=== PATIENT | male | born 1965 | race Caucasian/White ===

== ENCOUNTER 2019-12-14 12:30 | Emergency (ER) | payer BC ==
[~2019-12-14] VITALS: Ht 175.3 cm; Wt 96.3 kg
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
[2019-12-14] MEDS ORDERED: ASPIRIN 81 MG CHEW TAB ONE (12:57)
[2019-12-14] MEDS ORDERED: ASPIRIN 325 MG TAB PO ONE (13:00)
[2019-12-14] MEDS ORDERED: IOPAMIDOL 370 MG/ML 200 ML INFUS..BTL INJ ONE (13:31)
[2019-12-14] MEDS ORDERED: SODIUM CHLORIDE 0.9% 250ML 250 ML ONE (13:32)
[2019-12-14] MEDS ORDERED: SODIUM CHLORIDE 0.9% 1000ML 1,000 ML ONE (13:32)
--- NOTE | 2019-12-14 13:42 | Diagnostic Imaging Report ---
EXAMINATION: PA and lateral views of the chest. COMPARISON: None CLINICAL HISTORY: Left-sided chest pain DISCUSSION: The lungs are well inflated. No focal airspace consolidation, pleural effusion, or pneumothorax. Cardiomediastinal contour and pulmonary vasculature are within normal limits. No acute osseous abnormalities. IMPRESSION: No acute cardiopulmonary abnormalities. Signed by: Dr. Sly Galvez M.D. on 12/14/2019 1:39 PM
[2019-12-14] MEDS ORDERED: SODIUM CHLORIDE 0.9% 1000ML 1,000 ML IV SCH (13:45)
[2019-12-14] MEDS ORDERED: LOSARTAN POTASS25 MG (14:09)
[2019-12-14] MEDS ORDERED: NEXIUM40 MG PO (14:09)
[2019-12-14] MEDS ORDERED: HYDROCHLOROTHIA25 MG (14:09)
--- OUTSIDE RECORDS SUMMARY | 2019-12-14 14:11 | XMS REPORT | Continuity of Care Document ---
Author Author [facility] t Organization [facility] Address [address] [place] [address] Phone Unavailable Care Team Providers Care Mussel Farmer Name Role Phone Eladio SHABAZZ Unavailable Payers Payer Name Policy Type Policy Number Effective Date Expiration Date S ource Problems This patient has no known problems. Allergies, Adverse Reactions, Alerts Allergy Name Allergy Type Status Severity Reaction(s) Onset Date Inacti ve Date Treating Clinician Comments Source No Known Allergies DA Active U 2012-01-20 00:00:[address] [facility] Medications This patient has no known medications. Procedures This patient has no known procedures. Results Test Description Test Time Test Comments Results Result Comments Source CXR 2 VIEW - HOPD 2019-12-14 13:37:00 [facility] [address] [place] [address] Patient Name: TRISTON BLAKE MR #: [id number] : 1965 Age/Sex: 54/M Req #: [id number] Adm Physician: Ordered by: VICTOR HUGO SHABAZZ MD Report #: [id number] Location: [facility] Room/Bed: Procedure: [id number] HOPD/CXR 2 VIEW - HOPD Exam Date: 12/14/19 Exam Time: 1327 REPORT STATUS: Signed EXAMINATION: PA and lateral views of the chest. COMPARISON: None CLINICAL HISTORY: Left-sided chest pain DISCUSSION: The lungs are well inflated. No focal airspace consolidation, pleural effusion, or pneumothorax. Cardiomediastinal contour and pulmonary vasculature are within normal limits. No acute osseous abnormalities. IMPRESSION: No acute cardiopulmonary abnormalities. Signed by: Dr. Jewels Johnson M.D. on 12/14/2019 1:39 PM Dictated By: JEWELS JOHNSON MD 1336 Transcribed By: RONY on 12/14/19 1339 COPY TO: VICTOR HUGO SHABAZZ MD
--- NOTE | 2019-12-14 14:56 | Diagnostic Imaging Report ---
Chest CTA WITHOUT AND WITH IV CONTRAST. INDICATION: Right-sided acute onset chest pain. COMPARISON: None. TECHNIQUE: The chest was scanned utilizing a multidetector helical scanner from the thoracic inlet to the upper abdomen before and after administration of IV contrast. Coronal and sagittal reformations were obtained. 3D post-processing of the images was performed, and the post-processed images were used in interpretation. CTA protocol was performed. IV CONTRAST: 86 mL of Isovue 370 ORAL CONTRAST: None RADIATION DOSE: Total DLP: 666 mGy*cm FINDINGS: VESSELS: Noncontrast images are negative for acute intramural hematoma. Postcontrast images are negative for aortic dissection or aneurysm. Negative for penetrating atherosclerosis ulceration. No adverse chronic calcifications are identified. Normal three-vessel branching pattern is noted. Pulmonary arteries are normal caliber. Negative for central embolism. NON-VASCULAR: LINES/ TUBES: None. LUNGS AND AIRWAYS: Negative for consolidation. No suspicious nodule or mass is identified. Airways are normal. PLEURA: The pleural spaces are clear. HEART AND MEDIASTINUM: The thyroid gland is normal. No mediastinal, hilar or axillary lymphadenopathy. The heart is normal in size.. There is no pericardial effusion. Negative for right ventricular enlargement. UPPER ABDOMEN: Cholesterol stones are identified within the partially visualized gallbladder which is not distended. BONES: No acute osseous abnormality. No suspicious lytic or blastic lesion. SOFT TISSUES: Unremarkable. IMPRESSION: 1. Negative for aortic dissection, aneurysm or intramural hematoma. No calcified atherosclerotic changes are identified. 2. Lungs are clear. Signed by: Truong Godinez MD on 12/14/2019 2:52 PM
[2019-12-14 17:10] VITALS: BP 130/69
== END 2019-12-14 16:41 | disposition home or self-care (01) ==
LOC: FSED 12:45
DX: R07.9 Chest pain, unspecified (principal); I10 Essential (primary) hypertension; E78.5 Hyperlipidemia, unspecified; K21.9 Gastro-esophageal reflux disease without esophagitis; M48.04 Spinal stenosis, thoracic region
CPT/HCPCS: 71046; 71275; 80053; 81003; 82553; 83880; 84484; 85025; 85379; 93005; 99284; J7050; Q9967; J7030

== ENCOUNTER → 2023-02-16 | Day surgery (SDC) | payer BC ==
[~2023-02-16] MED LIST: ACETAMINOPHEN-1 EAC4 PO; BUPIVACAINE HCL 0.5% 10ML MPF VIAL INJ ONE; CRESTOR10 MG PO; CYCLOBENZAPRINE10 MG PO; FENTANYL CITRATE/PF 100MCG/2 ML INJ ONE; HYDROCHLOROTHIA25 MG; LACTATED RINGER'S 1,000 ML ONE; LIDOCAINE HCL 2% LOCAL INJ 5 ML SDV VIAL INJ ONE; LOSARTAN POTASS25 MG; LOSARTAN POTASS25 MG PO; MIDAZOLAM HCL 2 MG/2 ML VIAL ONE; MUPIROCIN 2% OINT 22 GM TUBE ONE; NEXIUM40 MG PO; ONDANSETRON HCL INJ 2MG/ML 2ML 2 MG/ML VIAL ONE; PROPOFOL IV EMULSION 10 MG/ML 20 ML VIAL ONE
[2023-02-16 09:25] VITALS: BP 122/88; PULSE 72; RESP 18; O2SAT 99
== END | disposition home or self-care (01) ==
LOC: OR 05:46
PROVIDERS: ATTEND Plastic Surgery
DX: M65.321 Trigger finger, right index finger (principal); M65.331 Trigger finger, right middle finger; M54.2 Cervicalgia; I10 Essential (primary) hypertension; R06.83 Snoring; Z79.899 Other long term (current) drug therapy
CPT/HCPCS: 26055 ×2; 93005; J0690; J2001; J2250; J2405; J2704; J3010; J7121